=== PATIENT | female | born 2000 | race Caucasian/White ===

== ENCOUNTER 2020-08-23 06:00 | Inpatient (IN) ==
[2020-08-23] MEDS ORDERED: Famotidine 20 MG/2 ML VIAL IVP PRN (06:17)
[2020-08-23] MEDS ORDERED: Naloxone 0.4 MG/ML INJ IVP PRN ×2 (06:17→08:55)
[2020-08-23] MEDS ORDERED: Azithromycin 500 MG in 0.9 % Sodium Chloride 250 ML IVPB ONE (06:17)
[2020-08-23] MEDS ORDERED: *HR* Nalbuphine 10 MG/ML AMPUL IV PRN (06:17)
[2020-08-23] MEDS ORDERED: miSOPROStoL 25 MCG TABLET VG PRN (06:17)
[2020-08-23] MEDS ORDERED: Metoclopramide 10 MG/2 ML VIAL IVP PRN (06:17)
[2020-08-23] MEDS ORDERED: Ondansetron 4 MG/2 ML VIAL IVP PRN ×2 (06:17→08:55)
[2020-08-23] MEDS ORDERED: Lidocaine 1% 20 ML MDV INFILT PRN (06:17)
[2020-08-23 06:57] LABS: Basophils % 0.4 %; Eosinophils # 0.1 K/mcL (0.0-0.6); Eosinophils % 0.6 %; Hematocrit 37.5 % (35.3-44.9); Hemoglobin 12.3 g/dL (11.5-15.4); Immature Granulocytes % 0.3 % (0-4); Lymphocytes # 1.8 K/mcL (0.6-4.6); Lymphocytes % 16.9 %; Mean Corpuscular HGB Conc 32.8 g/dL (31.6-35.5); Mean Corpuscular Hemoglobin 29.3 pg (28.0-33.3); Mean Corpuscular Volume 89.3 fL (83.0-100.0); Mean Platelet Volume 10.5 fL (9.4-12.4); Monocytes # 0.7 K/mcL (0.0-1.3); Monocytes % 6.1 %; Neutrophils # 8.1 K/mcL (1.6-8.9); Platelet Count 161 K/mcL (140-400); Red Cell Distribution Width 13.9 % (11.5-14.5); Segmented Neutrophils % 75.7 %; White Blood Count 10.7 K/mcL (4.3-11.1)
[2020-08-23] MEDS ORDERED: Ropivacaine/PF 0.2% 20 ML VIAL EP ONE (08:55)
[2020-08-23] MEDS ORDERED: EPHEDrine 50 MG/ML VIAL IVP PRN (08:55)
[2020-08-23 09:34] LABS: Amphetamine Screen,Urine Negative ng/mL (Cutoff=1000); Barbiturate Screen,Urine Negative ng/mL (Cutoff=200); Benzodiazepines Screen,Urine Negative ng/mL (Cutoff=200); Cannabinoid Screen,Urine Negative ng/mL (Cutoff = 50); Cocaine Screen,Urine Negative ng/mL (Cutoff= 300); Opiate Screen,Urine Negative ng/mL (Cutoff=300); Phencyclidine Screen,Urine Negative ng/mL (Cutoff=25)
[2020-08-23] MEDS: Ringers Solution, Lactated 1,000 ML IVC SCH ×2 (13:11→17:48)
[2020-08-23] MEDS ORDERED: Ropivacaine/PF 0.2% 20 ML VIAL ONE ×2 (13:57→21:00)
[2020-08-23] MEDS: Epidural Premix (fent/bupiv) 110 ML EP SCH ×2 (14:21→21:39)
[2020-08-23] MEDS ORDERED: Oxytocin 20 units/ LR 1000 mL 20 UNIT/1,000 ML BAG IVC SCH (17:30)
[2020-08-24] MEDS ORDERED: Ropivacaine/PF 0.2% 20 ML VIAL ONE (01:19)
[2020-08-24] MEDS: Ringers Solution, Lactated 1,000 ML IVC SCH (01:49)
[2020-08-24] MEDS ORDERED: Lanolin 7 G OINT...G. TP PRN (06:08)
[2020-08-24] MEDS ORDERED: Benzocaine/Menthol 56 GM AEROSOL SPRAY TP PRN (06:08)
[2020-08-24] MEDS ORDERED: Oxytocin 20 units/ LR 1000 mL 20 UNIT/1,000 ML BAG IVC SCH (06:08)
[2020-08-24] MEDS: Prenatal Vit/FA 1 EACH TABLET PO SCH (10:09)
[2020-08-24] MEDS: Ibuprofen 600 MG TABLET PO PRN ×2 (10:25→20:07)
[2020-08-24] MEDS: *HR* HYDROcodone/Acet 5/325 mg TABLET PO PRN ×2 (12:30→22:41)
[2020-08-24] MEDS: Acetaminophen 325 MG TABLET PO PRN (14:47)
[2020-08-25] MEDS: *HR* HYDROcodone/Acet 5/325 mg TABLET PO PRN (05:08)
[2020-08-25] MEDS: Ibuprofen 600 MG TABLET PO PRN ×2 (05:08→12:29)
[2020-08-25 05:33] LABS: Basophils % 0.3 %; Eosinophils # 0.2 K/mcL (0.0-0.6); Eosinophils % 1.3 %; Hematocrit 27.6 % (35.3-44.9); Immature Granulocytes % 0.3 % (0-4); Lymphocytes # 2.1 K/mcL (0.6-4.6); Lymphocytes % 18.5 %; Mean Corpuscular HGB Conc 32.6 g/dL (31.6-35.5); Mean Platelet Volume 10.9 fL (9.4-12.4); Monocytes # 0.8 K/mcL (0.0-1.3); Monocytes % 7.1 %; Neutrophils # 8.3 K/mcL (1.6-8.9); Platelet Count 126 K/mcL (140-400); Red Cell Distribution Width 14.1 % (11.5-14.5); Segmented Neutrophils % 72.5 %; White Blood Count 11.4 K/mcL (4.3-11.1)
[2020-08-25] MEDS: Prenatal Vit/FA 1 EACH TABLET PO SCH (08:10)
[2020-08-25 08:12] VITALS: BP 117/74
[2020-08-25] MEDS: Acetaminophen 325 MG TABLET PO PRN (12:29)
== END 2020-08-25 15:51 | disposition home or self-care (01) | DRG 560 ==
LOC: 1NENULAB 06:09 → 1NENUOBS 08-24 08:47
PROVIDERS: ADMIT Obstetrics & Gynecology; ATTEND Obstetrics & Gynecology